=== PATIENT | male | born 1970 | race American Indian/Alaskan Native ===

== ENCOUNTER 2025-09-25 20:13 | Emergency (ER) | payer MEDICAID ==
[2025-09-25] MEDS: Insulin Regular, Human 100 Units/ML 10 ML Vial IV STA (20:47)
[2025-09-25 20:50] LABS: BASOPHILS ABSOLUTE AUTO 0.1 K/mm3 (0.0-0.2); BASOPHILS PERCENT AUTO 0.7 % (0.0-1.0); EOSINOPHILS ABSOLUTE AUTO 0.2 K/mm3 (0.0-0.4); EOSINOPHILS PERCENT AUTO 2.9 % (0.0-6.0); IMMATURE GRAN ABSOLUTE AUTO 0.02 K/mm3 (0.00-0.05); IMMATURE GRAN PERCENT AUTO 0.3 % (0.0-0.4); LYMPHOCYTES ABSOLUTE AUTO 2.0 K/mm3 (1.0-4.8); LYMPHOCYTES PERCENT AUTO 26.2 % (24.0-44.0); MEAN PLATELET VOLUME 10.3 fl (9.4-12.4); MONOCYTES ABSOLUTE AUTO 0.6 K/mm3 (0.0-0.8); MONOCYTES PERCENT AUTO 7.2 % (0.0-8.0); NEUTROPHILS ABSOLUTE AUTO 4.8 K/mm3 (1.8-7.7); NEUTROPHILS PERCENT AUTO 62.7 % (41.0-71.0); NRBC ABSOLUTE 0.00 (0.00-0.02); NRBC PERCENT 0.0 % (0.0-0.2); PLATELET COUNT,PLT 125 K/mm3 (150-400); RED BLOOD CELL COUNT 4.48 M/mm3 (4.52-5.90); WHITE BLOOD CELL COUNT,WBC 7.64 K/mm3 (3.9-11.3)
[2025-09-25 21:00] LABS: A/G RATIO 0.8 (1-2); ALANINE AMINOTRANSFERASE,ALT 27.0 U/L (16-63); ASPARTATE AMNIOTRANSFERASE,AST 27.0 U/L (15-37); BILIRUBIN TOTAL 0.7 mg/dL (0.2-1.0); BLOOD UREA NITROGEN,BUN 9.0 mg/dL (7-18); CARBON DIOXIDE,CO2 28.0 mEq/L (21-32); CHLORIDE,CL 101.0 mEq/L (98-107); CREATINE KINASE,CK 97.0 U/L (39-308); CREATININE 0.9 mg/dL (0.7-1.3); EST CRCL DRUG DOSING (CG) 102.99 mL/min; ESTIMATED GFR 101.0 mL/min (>60); GLUCOSE RANDOM 398.0 mg/dL (70-99); POTASSIUM,K 4.1 mEq/L (3.5-5.1); PROTEIN TOTAL,TP 7.7 g/dl (6.4-8.2); SODIUM,NA 135.0 mEq/L (136-145)
[2025-09-25 21:01] LABS: ETHANOL BLOOD MEDICAL 0.0 gm% (0.00)
[2025-09-25 21:02] LABS: PH,VENOUS 7.50 (7.30-7.40)
[2025-09-25 21:03] LABS: BASE EXCESS VENOUS 3.6 (-4.0-2.0); BICARBONATE,VENOUS 26.5 meq/L (22-26); O2 SATURATION VENOUS 98.8; PCO2 VENOUS 34.0 mmHg (41-51); PO2 VENOUS 107.0 mmHG (40-80)
[2025-09-25 21:57] LABS: BUPRENORPHINE SCREEN,URINE NEGATIVE (CUTOFF=10); METHADONE SCREEN, URINE NEGATIVE (CUT0FF=200); METHAMPHETAMINES SCREEN, URINE NEGATIVE (CUTOFF=500); OXYCODONE SCREEN,URINE NEGATIVE (CUT0FF=100); THC SCREEN,URINE 20 NG/ML NEGATIVE (CUTOFF=50)
[2025-09-25 22:00] LABS: AMPHETAMINES SCREEN, URINE NEGATIVE (CUTOFF=500)
== END 2025-09-25 22:30 | disposition home or self-care (01) ==
LOC: JD.ED 20:13
DX: E10.65 Type 1 diabetes mellitus with hyperglycemia (principal); I10 Essential (primary) hypertension; Z86.16 Personal history of COVID-19; Z79.4 Long term (current) use of insulin
CPT/HCPCS: 36415; 80053; 80306; 80307; 82010; 82550; 82803; 82947; 83036; 83735; 85025; 93005; 96360; 99285; J1815; J7030; 93010; 99284